=== PATIENT | male | born 1975 | race Caucasian/White ===

== ENCOUNTER → 2022-11-09 | Outpatient (CLI) | payer OTHER ==
[~2022-11-09] MED LIST: ALBU90OI6 INH; ASPI81EC PO; AZIT250 PO; FISH1000 PO; GUAI600ER PO; IBUP800 PO
== END | disposition home or self-care (01) ==
LOC: LAB 11:32 → LAB SHORT 11:32
DX: M79.671 Pain in right foot (principal)
CPT/HCPCS: 84550

== ENCOUNTER 2023-01-25 08:20 | Day surgery (SDC) | payer OTHER ==
[~2023-01-25] VITALS: Ht 177.8 cm; Wt 79.2 kg
[2023-01-25] MEDS ORDERED: LEVSOD100 PO (08:44)
[2023-01-25 10:59] VITALS: BP 99/62
== END 2023-01-25 11:10 | disposition home or self-care (01) ==
LOC: ORSCSDS 08:20
DX: Z12.11 Encounter for screening for malignant neoplasm of colon (principal); D12.3 Benign neoplasm of transverse colon; D12.4 Benign neoplasm of descending colon; Z80.0 Family history of malignant neoplasm of digestive organs; E07.9 Disorder of thyroid, unspecified; Z79.899 Other long term (current) drug therapy
CPT/HCPCS: 88305; J2704; J7120

== ENCOUNTER 2024-08-27 04:18 | Emergency (ER) | payer OTHER ==
[~2024-08-27] VITALS: Ht 177.8 cm; Wt 83.9 kg
[~2024-08-27 04:18] MED LIST changes: +LEVSOD100 PO
[2024-08-27 04:25] VITALS: BP 145/91
[2024-08-27] MEDS ORDERED: Prednisone20 MG PO (04:28)
[2024-08-27] MEDS ORDERED: PredniSONE 20 MG Tab PO ONE (04:30)
[2024-08-27] MEDS ORDERED: DiphenhydrAMINE HCl 50 MG Cap PO ONE (04:30)
== END 2024-08-27 04:45 | disposition home or self-care (01) ==
LOC: ER 04:18
DX: L23.7 Allergic contact dermatitis due to plants, except food (principal); Z79.2 Long term (current) use of antibiotics; Z79.890 Hormone replacement therapy
CPT/HCPCS: 99282; A9270; J7512